=== PATIENT | female | born 1995 | race Caucasian/White ===

== ENCOUNTER 2017-03-25 14:28 | Emergency (ER) | payer OTHER ==
[2017-03-25 14:44] VITALS: BP 109/51
--- NOTE | 2017-03-25 15:09 | UC ---
Respiratory Complaint HPI - HPI Summary HPI Summary: 2 DAYS OF DRY COUGH. NO FEVER, CONGESTION, ST, EAR PAIN, N/V/D. SLEEPING WELL AT NIGHT. ALSO IS COMPLAINING OF SEVERAL DAYS OF VAGINAL IRRITATION AND ITCHING. HAS WHITE VAGINAL DISCHARGE. REPORTS FREQUENT ISSUES WITH VAGINAL INFECTIONS. NO RECENT ABX USE. DENIES H/O DIABETES. - History of Current Complaint Chief Complaint: UCRespiratory Stated Complaint: RESP COMPLAINT Time Seen by Provider: 03/25/17 14:48 Hx Obtained From: Patient Hx Last Menstrual Period: 03/06/17 Onset/Duration: Gradual Onset, Lasting Days, Still Present Timing: Constant Severity Initially: Mild Severity Currently: Mild Pain Intensity: 0 Pain Scale Used: 0-10 Numeric Character: Cough: Nonproductive Aggravating Factors: Nothing Alleviating Factors: Nothing Associated Signs And Symptoms: Positive: Negative - Allergies/Home Medications Allergies/Adverse Reactions: Allergies Allergy/AdvReac Type Severity Reaction Status Date / Time No Known Allergies Allergy Verified 03/25/17 14:43 PMH/Surg Hx/FS Hx/Imm Hx Previously Healthy: Yes - Surgical History Surgical History: None - Family History Known Family History: Positive: Hypertension, Other - denies any significant family history - Social History Alcohol Use: Rare Substance Use Type: None Smoking Status (MU): Never Smoked Tobacco Have You Smoked in the Last Year: No - Immunization History Most Recent Influenza Vaccination: 2013 Review of Systems Constitutional: Negative ENT: Negative Respiratory: Cough Cardiovascular: Negative Gastrointestinal: Negative Genitourinary: Other - VAGINAL IRRITATION AND DISCHARGE All Other Systems Reviewed And Are Negative: Yes Physical Exam Triage Information Reviewed: Yes Appearance: Well-Appearing, No Pain Distress, Well-Nourished Vital Signs: Initial Vital Signs Temp 97.7 F 03/25/17 14:43 Pulse 58 03/25/17 14:43 Resp 16 03/25/17 14:43 BP 109/51 03/25/17 14:43 Pulse Ox 100 03/25/17 14:43 Vital Signs Reviewed: Yes Eyes: Positive: Conjunctiva Clear ENT: Positive: Hearing grossly normal, Pharynx normal, TMs normal Neck: Positive: Supple, Nontender, No Lymphadenopathy Respiratory Exam: Normal Cardiovascular Exam: Normal Abdomen Description: Positive: Soft Musculoskeletal: Positive: No Edema Neurological: Positive: Alert Psychological: Positive: Age Appropriate Behavior Skin: Negative: rashes UC Physical Exam Vital Signs On Initial Exam: Initial Vitals Temp Pulse Resp BP Pulse Ox 97.7 F 58 16 109/51 100 03/25/17 14:43 03/25/17 14:43 03/25/17 14:43 03/25/17 14:43 03/25/17 14:43 - Genitalia Exam Female Genitourinary: Other - DECLINED UC Diagnostic Evaluation - Laboratory O2 Sat by Pulse Oximetry: 100 Respiratory Course/Dx - Course Course Of Treatment: PT REPORTS FREQUENT YEAST INFECTIONS. WILL TREAT EMPIRICALLY WITH DIFLUCAN. ADVSIED PT THAT IF SX DO NOT RESOLVE SHE WILL NEED A PELVIC EXAM FOR FURTHER EVALUATION. TREAT COUGH CONSERVATIVELY AND FOLLOW-UP IF SX NOT IMPROVING OVER THE NEXT FEW WEEKS. - Differential Dx/Diagnosis Provider Diagnoses: 1. ACUTE URI. 2. YEAST VAGINITIS Discharge - Discharge Plan Condition: Stable Disposition: HOME Prescriptions: Fluconazole [Diflucan] 1 tab PO ONCE #2 tab Patient Education Materials: Upper Respiratory Infection (ED), Vulvovaginal Candidiasis (ED) Forms: *Work Release Referrals: Navin Yadav, SQL SERVER DEVELOPER [Primary Care Provider] - If Needed Additional Instructions: NO EVIDENCE OF BACTERIAL RESPIRATORY INFECTION ON EXAM TODAY. YOUR SYMPTOMS WILL LIKELY WORSEN INITIALLY BUT AFTER SEVERAL WEEKS SHOULD BE MUCH IMPROVED. PLEASE SEEK FOLLOW-UP IF YOU DO NOT NOTICE IMPROVEMENT OVER THE NEXT 2-3 WEEKS.
== END 2017-03-25 15:25 | disposition home or self-care (01) ==
LOC: UCEAST 14:28
DX: J06.9 Acute upper respiratory infection, unspecified (principal); B37.3 Candidiasis of vulva and vagina
CPT/HCPCS: 99212; G0463

== ENCOUNTER 2017-05-06 12:38 | Emergency (ER) | payer OTHER ==
[2017-05-06 12:46] VITALS: BP 87/67
--- NOTE | 2017-05-24 09:49 | UC ---
Nicolas Barrios Benjamin, scribed for Hina Flores MD on 05/06/17 at 1327 . Respiratory Complaint HPI - HPI Summary HPI Summary: 21yo female c/o URI symptoms. Pt had symptoms for 2 weeks now. Initially symptoms started as slight tingling behind her throat, but throughout the past few weeks, pt started to develop productive cough with yellow phlegm and sore throat. Pt also reports some swollen lymph nodes. Her cough is worsening at night and is also giving her sore rib muscles. Pt hasnt taken any meds for her symptoms yet. - History of Current Complaint Chief Complaint: UCRespiratory Stated Complaint: COUGH CONTINUED Hx Obtained From: Patient Hx Last Menstrual Period: mirena Onset/Duration: Gradual Onset, Lasting Weeks - 2-3 weeks, Still Present, Worse Since - progressively Severity Initially: Mild Severity Currently: Mild Pain Intensity: 0 Pain Scale Used: 0-10 Numeric Character: Cough: Productive - yellow Aggravating Factors: Nothing Alleviating Factors: Nothing Associated Signs And Symptoms: Positive: URI, Nasal Congestion - Allergies/Home Medications Allergies/Adverse Reactions: Allergies Allergy/AdvReac Type Severity Reaction Status Date / Time No Known Allergies Allergy Verified 03/25/17 14:43 PMH/Surg Hx/FS Hx/Imm Hx Respiratory History: Bronchitis - Surgical History Surgical History: None - Family History Known Family History: Positive: Hypertension, Other - denies any significant family history - Social History Occupation: Student Lives: With Family Alcohol Use: Rare Substance Use Type: None Smoking Status (MU): Never Smoked Tobacco Have You Smoked in the Last Year: No - Immunization History Most Recent Influenza Vaccination: 2013 Review of Systems Constitutional: Negative Skin: Negative Eyes: Negative ENT: Sore Throat, Nasal Discharge, Other - swollen lymph nodes Respiratory: Cough - productive, yellow Cardiovascular: Negative Gastrointestinal: Negative Genitourinary: Negative Motor: Negative Neurovascular: Negative Musculoskeletal: Negative Neurological: Negative Psychological: Negative All Other Systems Reviewed And Are Negative: Yes Physical Exam Triage Information Reviewed: Yes Appearance: Well-Nourished Vital Signs: Initial Vital Signs Temp 97.8 F 05/06/17 12:42 Pulse 64 05/06/17 12:42 Resp 16 05/06/17 12:42 BP 87/67 05/06/17 12:42 Pulse Ox 100 05/06/17 12:42 Vital Signs Reviewed: Yes Eye Exam: Normal ENT Exam: Normal ENT: Positive: Hearing grossly normal, Pharyngeal erythema - Uvular midline posterior pharynx erythema. Negative: Muffled/hoarse voice Neck: Positive: Supple. Negative: No Lymphadenopathy - anterior cervical lymphadenopathy Respiratory: Positive: No respiratory distress - No tachypnea, no dyspnea, No accessory muscle use, Wheezing Cardiovascular: Positive: RRR, Pulses Normal, Brisk Capillary Refill Abdomen Description: Positive: Nontender, No Organomegaly, Soft Bowel Sounds: Positive: Present Musculoskeletal Exam: Normal Neurological Exam: Normal Psychological Exam: Normal Skin Exam: Normal Skin: Negative: rashes UC Diagnostic Evaluation - Laboratory O2 Sat by Pulse Oximetry: 100 Respiratory Course/Dx - Course Course Of Treatment: Reviewed pt's medications list and allergies. Blood pressure noted. Advised to use ear wax cleaning solutions for her ear wax accumulation, also recommended mucinex and using an inhaler for her symptoms. Explained about zithromax. Advised to follow up with her PCP for a recheck 1 week from now. + work note. - Differential Dx/Diagnosis Provider Diagnoses: bronchitis. bronchospasm Discharge - Discharge Plan Condition: Stable Disposition: HOME Prescriptions: Albuterol HFA INHALER* [Ventolin HFA Inhaler*] 1 - 2 puff INH Q4H PRN #1 mdi PRN Reason: Wheezing Azithromyxin MILES (NF) [Z-Miles (Zithromax) 250 mg tabs #6] 2 tab PO .TODAY, THEN 1 DAILY #6 tab Fluconazole 150 MG (NF) [Diflucan 150 mg (NF)] 150 mg PO DAILY #2 tab Patient Education Materials: Acute Bronchitis (ED), Bronchospasm (ED) Forms: *Work Release Referrals: Navin Yadav, PUBLIC HEALTH NUTRITIONIST [Primary Care Provider] - Additional Instructions: Please follow up with your primary care provider in 1-2 weeks. Seek medical attention for worse or new problems in the meantime. Antihistamine (over the counter) as needed for itchy eyes, runny nose, per packaging instructions. The documentation as recorded by the Nicolas flores Benjamin accurately reflects the service I personally performed and the decisions made by me, Hina Flores MD.
== END 2017-05-06 13:50 | disposition home or self-care (01) ==
LOC: UCEAST 12:38
DX: J20.9 Acute bronchitis, unspecified (principal)
CPT/HCPCS: 99212; G0463

== ENCOUNTER 2017-12-08 08:37 | Emergency (ER) | payer OTHER ==
[2017-12-08] MEDS ORDERED: guaiFENesin LIQ* 100 MG/5 ML UDC PO ONE (08:55)
--- NOTE | 2017-12-08 09:38 | RAD ---
INDICATION: Cough, dark sputum. COMPARISON: Comparison is made with a prior study from February 06, 2015. TECHNIQUE: Dual-energy PA and lateral views of the chest were obtained. FINDINGS: The heart is within normal limits in size. Mediastinal and hilar contours appear within normal limits. The lungs are clear. No pleural effusion is present. IMPRESSION: NO EVIDENCE FOR ACTIVE CARDIOPULMONARY DISEASE.
--- NOTE | 2017-12-08 11:20 | ED ---
Influenza-Like Illness - HPI Summary HPI Summary: Patient is an otherwise healthy 22-year-old female presenting to the ED with chief complaint of 2 days onset of fevers, sweats, chills, cough, sore throat. Cough is with production with a green to dark mucus. Denies any blood in the mucus. Endorses sick contacts. Denies receiving a flu vaccine this year. Denies any shortness of breath. She has taken Tylenol with relief of the fever , but endorses diffuse myalgias which is not improved with Tylenol. Symptoms are aggravated by nothing, relieved mildly with Tylenol. She has not taken anything else [id number]. She takes no medications otherwise. - History of Current Complaint Chief Complaint: EDFluSymptoms Time Seen by Provider: 12/08/17 08:43 Hx Obtained From: Patient Onset/Duration: Gradual Onset Severity: Moderate Associated Signs & Symptoms: Fever, T Max - 101, F/C, Myalgia, Cough, Sore Throat Related Hx: Possible Flu/Infectious Exposure - Risk Factors Influenza Risk Factors: Negative - Allergy/Home Medications Allergies/Adverse Reactions: Allergies Allergy/AdvReac Type Severity Reaction Status Date / Time No Known Allergies Allergy Verified 03/25/17 14:43 PMH/Surg Hx/FS Hx/Imm Hx Previously Healthy: Yes Endocrine/Hematology History: Denies: Hx Diabetes, Hx Thyroid Disease Cardiovascular History: Denies: Hx Hypertension Respiratory History: Denies: Hx Asthma, Hx Chronic Obstructive Pulmonary Disease (COPD) GI History: Denies: Hx Ulcer - Immunization History Hx Pertussis Vaccination: No Immunizations Up to Date: Yes Infectious Disease History: No Infectious Disease History: Denies: Hx Clostridium Difficile, Hx Hepatitis, Hx Human Immunodeficiency Virus (HIV), Hx of Known/Suspected MRSA, Hx Shingles, Hx Tuberculosis, Hx Known/ Suspected VRE, Hx Known/Suspected VRSA, History Other Infectious Disease, Traveled Outside the [place] in Last 30 Days - Family History Known Family History: Positive: Hypertension, Other - denies any significant family history - Social History Occupation: Employed Full-time Lives: With Family Alcohol Use: Rare Hx Substance Use: No Substance Use Type: Reports: None Hx Tobacco Use: No Smoking Status (MU): Never Smoked Tobacco Have You Smoked in the Last Year: No Review of Systems Positive: Fever, Chills, Fatigue, Skin Diaphoresis Eyes: Negative Positive: Sore Throat Cardiovascular: Negative Positive: Cough Negative: Abdominal Pain, Vomiting, Diarrhea, Nausea Positive: no symptoms reported, see HPI Positive: Myalgia Skin: Negative All Other Systems Reviewed And Are Negative: Yes Physical Exam Triage Information Reviewed: Yes Vital Signs On Initial Exam: Initial Vitals Temp Pulse Resp BP Pulse Ox 98.7 F 89 20 122/63 97 12/08/17 08:39 12/08/17 08:39 12/08/17 08:39 12/08/17 08:39 12/08/17 08:39 Vital Signs Reviewed: Yes Appearance: Positive: Well-Appearing, Well-Nourished Skin: Positive: Warm, Skin Color Reflects Adequate Perfusion Head/Face: Positive: Normal Head/Face Inspection Eyes: Positive: EOMI, JADON, Conjunctiva Clear Neck: Positive: Supple, No Lymphadenopathy Respiratory/Lung Sounds: Positive: Clear to Auscultation, Breath Sounds Present Cardiovascular: Positive: RRR, Pulses are Symmetrical in both Upper and Lower Extremities Musculoskeletal: Positive: Normal, Strength/ROM Intact Neurological: Positive: Speech Normal Psychiatric: Positive: Normal, Affect/Mood Appropriate AVPU Assessment: Alert Diagnostics - Vital Signs Vital Signs Temp Pulse Resp BP Pulse Ox 12/08/17 08:39 98.7 F 89 20 122/63 97 - Laboratory Lab Results: Lab Results 12/08/17 12/08/17 Range/Units 09:20 09:20 Influenza A (Rapid) Negative (Negative) Influenza B (Rapid) Positive A (Negative) Group A Strep Rapid Negative (Negative) Lab Statement: Any lab studies that have been ordered have been reviewed, and results considered in the medical decision making process. Flu Symptom Course/Dx - Course Course Of Treatment: During the course of treatment, the patient's evaluated for influenza versus pneumonia versus other etiology. Influenza B-positive. Chest x-ray with no acute cardiopulmonary findings. She is begun on Tamiflu and this is sent to her pharmacy. She is advised to rest, drink plenty of fluids, eat small meals at a time, and take [id number] Robitussin for any cough. I am not concerned with another bacterial pathology at this time. She is to return if any symptoms become worse. She voices no concerns at this time and is okay for discharge. - Diagnoses Differential Diagnosis/HQI/PQRI: Positive: Influenza Provider Diagnoses: Influenza B Discharge - Discharge Plan Condition: Stable Disposition: HOME Prescriptions: Oseltamivir CAP* [Tamiflu CAP*] 75 mg PO BID #10 cap Patient Education Materials: Influenza (ED) Forms: *Gen. Provider Communication Referrals: No Primary Care Phys,NOPCP [Primary Care Provider] - Additional Instructions: Drink plenty of fluids Tylenol and ibuprofen for body aches Robitussin [id number] for cough Eat small amounts at a time Humidifier in the home will help Rest as much as possible
[2017-12-08 11:22] VITALS: BP 111/58
== END 2017-12-08 11:13 | disposition home or self-care (01) ==
LOC: ED 08:37
DX: J10.1 Influenza due to other identified influenza virus with other respiratory manifestations (principal)
CPT/HCPCS: 71046; 87502; 87651; 99283; A9270-GY